=== PATIENT | female | born 1950 | race Caucasian/White ===

== ENCOUNTER → 2016-12-10 | Outpatient (CLI) | payer MEDICARE, MEDICAID ==
[~2016-12-10] MED LIST: AMLO5TAB2 PO; AMLO5TAB4 PO; BECL8.7A5 INH; CEFD300C37 PO; CLOB15CR19 TP; CYCL-259 PO; GABA100C8 PO; HYDR25TA6 PO; LACT1CAP24 PO; LEVO50TA5 PO; LISI-170 PO; LOSA100T6 PO; METF500T4 PO; METR500T PO; OMEP20CA14 PO; OXYC-302 PO; PROM25SU35 PR; PROM25TA10 PO; RANI150C PO; ROPI0.5T2 PO; SIMV20TA PO; TIZA4CAP PO; WARF5TAB7 PO
== END | disposition home or self-care (01) ==
LOC: RAD 12:41
PROVIDERS: ATTEND Family Medicine
DX: Z02.9 Encounter for administrative examinations, unspecified (principal)

== ENCOUNTER → 2016-12-14 | Outpatient (CLI) | payer MEDICARE, MEDICAID ==
[2016-12-14 14:39] LABS: ASPARTATE AMINO TRANSFERASE 6 U/L (15-37); BLOOD UREA NITROGEN 35 mg/dL (7-18)
== END | disposition home or self-care (01) ==
LOC: STAR 13:24
PROVIDERS: ATTEND Specialist
DX: Z01.818 Encounter for other preprocedural examination (principal); M40.294 Other kyphosis, thoracic region; M47.894 Other spondylosis, thoracic region; R19.07 Generalized intra-abdominal and pelvic swelling, mass and lump; R79.1 Abnormal coagulation profile; Z90.722 Acquired absence of ovaries, bilateral
CPT/HCPCS: 36415; 71020; 80053; 85025; 85610; 85730

== ENCOUNTER → 2016-12-20 | Outpatient (CLI) | payer MEDICARE, MEDICAID | END | disposition home or self-care (01) | LOC: CFH 15:04 | PROVIDERS: ATTEND Registered Nurse | DX: I67.82 Cerebral ischemia (principal); G31.9 Degenerative disease of nervous system, unspecified; R90.82 White matter disease, unspecified; Z98.890 Other specified postprocedural states; J32.0 Chronic maxillary sinusitis | CPT/HCPCS: 70551 ==

== ENCOUNTER 2016-12-24 09:57 | Inpatient (IN) | payer MEDICARE, MEDICAID ==
[2016-12-14 13:54] VITALS: BP 130/83
[~2016-12-24] VITALS: Ht 149.9 cm; Wt 94.0 kg
[~2016-12-24 09:57] MED LIST changes: +GABA-826 PO; -GABA100C8 PO
[2016-12-24] MEDS ORDERED: LIDOCAINE 1%, 2ML ONE (10:34)
[2016-12-24] MEDS ORDERED: LISI-167 PO (10:43)
[2016-12-24] MEDS ORDERED: ALBU18HF INH (10:43)
[2016-12-24] MEDS: LACTATED RINGERS 1,000 ML IV SCH (11:16)
[2016-12-24] MEDS ORDERED: BUPIVACAINE/PF-EPI 0.25% 1:200K ONE (11:42)
[2016-12-24] MEDS ORDERED: HEPARIN 1,000 UNITS/ML, 10ML ONE (11:42)
[2016-12-24] MEDS ORDERED: MIDAZOLAM 1 MG/ML, 2ML ONE (12:08)
[2016-12-24] MEDS ORDERED: FENTANYL PF 250 MCG/5ML ONE (12:08)
[2016-12-24] MEDS ORDERED: GLYCOPYRROLATE 0.2MG/1ML ONE (15:20)
[2016-12-24] MEDS ORDERED: PROPOFOL 10 MG/ML, 20ML ONE (15:20)
[2016-12-24] MEDS ORDERED: ROCURONIUM 10 MG/ML ONE (15:20)
[2016-12-24] MEDS ORDERED: SUCCINYLCHOLINE 20 MG/ML, 10ML ONE (15:20)
[2016-12-24] MEDS ORDERED: NEOSTIGMINE 1 MG/ML, 10ML ONE (15:20)
[2016-12-24] MEDS ORDERED: CEFAZOLIN 1,000 MG ONE (15:20)
[2016-12-24] MEDS ORDERED: HYDROmorphone 1 MG/ML, 1ML IV PRN (19:30)
[2016-12-24] MEDS ORDERED: ALBUTEROL SULFATE 2.5 MG/3 ML NPPB PRN (19:30)
[2016-12-24] MEDS ORDERED: LABETALOL 5MG/ML, 20ML IV PRN (19:30)
[2016-12-24] MEDS ORDERED: METOCLOPRAMIDE 5 MG/ML, 2ML IV PRN (19:30)
[2016-12-24] MEDS ORDERED: EPHEDRINE 50 MG/ML, 1ML IVPush PRN (19:30)
[2016-12-24] MEDS ORDERED: ONDANSETRON 2MG/ML, 2ML IVPush PRN (19:30)
[2016-12-24] MEDS ORDERED: MEPERIDINE/PF 25MG/0.5ML IVPush PRN (19:30)
[2016-12-24] MEDS ORDERED: ALBUTEROL/IPRATROPIUM 2.5MG/0.5MG, 3 ML NPPB PRN (19:30)
[2016-12-24] MEDS ORDERED: PROMETHAZINE 25 MG/ML, 1ML IV PRN (19:30)
[2016-12-24] MEDS ORDERED: OXYcodone 5 MG/5 ML ORAL.SOL UDC PO PRN (19:30)
[2016-12-24] MEDS ORDERED: ACETAMINOPHEN 325 MG TABLET PO PRN (19:30)
[2016-12-24] MEDS ORDERED: hydrALAzine 20 MG/ML, 1ML IV PRN (19:30)
[2016-12-24] MEDS ORDERED: MIDAZOLAM 1 MG/ML, 2ML IV PRN (19:30)
[2016-12-24] MEDS ORDERED: FENTANYL PF 100 MCG/2ML ONE ×2 (19:32→20:16)
[2016-12-24] MEDS ORDERED: ACETAMINOPHEN 650 MG/20.3 ML UDC ONE (19:32)
[2016-12-24] MEDS ORDERED: OXYcodone 5 MG/5 ML ORAL.SOL UDC ONE (19:33)
[2016-12-24] MEDS: FENTANYL PF 100 MCG/2ML IV PRN ×3 (19:55→20:18)
[2016-12-25] MEDS ORDERED: OXYC-223 PO (01:22)
[2016-12-25] MEDS ORDERED: ONDA4TAB10 PO (01:22)
[2016-12-25 06:36] LABS: ASPARTATE AMINO TRANSFERASE 40 U/L (15-37); BLOOD UREA NITROGEN 16 mg/dL (7-18)
[2016-12-25] MEDS ORDERED: ONDANSETRON ODT 4 MG PO PRN (12:00)
[2016-12-25 15:55] VITALS: BP 107/66
[2016-12-25] MEDS: OXYcodone/APAP 7.5/325MG TABLET PO PRN ×2 (15:58→22:11)
[2016-12-25] MEDS: LACTATED RINGERS 1,000 ML IV SCH (15:58)
[2016-12-25 18:35] VITALS: BP 101/68
[2016-12-25] MEDS: AMLODIPINE 5 MG TABLET HOMEMEDPO SCH (21:00)
[2016-12-25] MEDS: TEMPLATE NON-FORMULARY MED. (QVAR 80 MCG) HOMEINH SCH (21:00)
[2016-12-25] MEDS: LISINOPRIL 10 MG TABLET HOMEMEDPO SCH (21:00)
[2016-12-25] MEDS: ZANTAC 150MG HOMEMEDPO SCH (21:00)
[2016-12-25] MEDS ORDERED: AMLODIPINE 5 MG TABLET HOMEMEDPO SCH (21:00)
[2016-12-25] MEDS: SIMVASTATIN 20 MG TABLET PO SCH (21:05)
[2016-12-26] MEDS ORDERED: ONDA4TAB7 PO (00:26)
[2016-12-26] MEDS ORDERED: OXYC-223 PO (00:26)
[2016-12-26 00:59] VITALS: BP 124/62
[2016-12-26] MEDS: OXYcodone/APAP 7.5/325MG TABLET PO PRN ×2 (04:43→21:03)
[2016-12-26] MEDS: LEVOTHYROXINE 50 MCG TABLET PO SCH (05:45)
[2016-12-26 06:33] VITALS: BP 110/68
[2016-12-26] MEDS: AMLODIPINE 5 MG TABLET HOMEMEDPO SCH ×2 (07:31→20:40)
[2016-12-26] MEDS: TEMPLATE NON-FORMULARY MED. (QVAR 80 MCG) HOMEINH SCH ×2 (07:31→20:36)
[2016-12-26] MEDS: ZANTAC 150MG HOMEMEDPO SCH ×2 (07:31→20:43)
[2016-12-26] MEDS: CALCIUM CARBONATE 500 MG TAB.CHEW PO PRN (10:53)
[2016-12-26] MEDS ORDERED: BISACODYL 10 MG SUPP PR PRN (14:00)
[2016-12-26 14:18] VITALS: BP 135/77
[2016-12-26 14:55] LABS: IS PT STATUS REG ER OR PRE ER? NO
[2016-12-26] MEDS ORDERED: ALBUTEROL SULFATE 2.5 MG/3 ML NPPB PRN (15:30)
[2016-12-26 18:37] LABS: PATH.CAST-FLAG NOT PRESENT; SPERM-FLAG NOT PRESENT; SRC-FLAG NOT PRESENT; XTAL-FLAG NOT PRESENT; YLC-FLAG NOT PRESENT
[2016-12-26 19:53] VITALS: BP 103/59
[2016-12-26 20:12] LABS: IS PT STATUS REG ER OR PRE ER? NO
[2016-12-26] MEDS: TEMPLATE NON-FORMULARY MED. (Ranitidine Hcl** 150 MG) HOMEMEDPO SCH (20:38)
[2016-12-26] MEDS: LISINOPRIL 10 MG TABLET HOMEMEDPO SCH (20:42)
[2016-12-26] MEDS: SIMVASTATIN 20 MG TABLET PO SCH (20:43)
[2016-12-26] MEDS ORDERED: TEMPLATE NON-FORMULARY MED. (Beclomethasone Dipropionate 80MCG (Qvar 80MCG) 1 PUFF(S)) INH SCH (21:00)
[2016-12-27] MEDS: OXYcodone/APAP 7.5/325MG TABLET PO PRN ×2 (03:07→18:02)
[2016-12-27 03:11] VITALS: BP 106/68
[2016-12-27] MEDS: LEVOTHYROXINE 50 MCG TABLET PO SCH (05:24)
[2016-12-27 06:10] LABS: ASPARTATE AMINO TRANSFERASE 46 U/L (15-37); BLOOD UREA NITROGEN 9 mg/dL (7-18)
[2016-12-27 06:41] VITALS: BP 101/70
[2016-12-27] MEDS: ZANTAC 150MG HOMEMEDPO SCH ×2 (07:30→21:00)
[2016-12-27] MEDS: AMLODIPINE 5 MG TABLET HOMEMEDPO SCH ×2 (07:30→21:00)
[2016-12-27] MEDS: TEMPLATE NON-FORMULARY MED. (QVAR 80 MCG) HOMEINH SCH ×2 (07:30→20:58)
[2016-12-27] MEDS: TEMPLATE NON-FORMULARY MED. (Ranitidine Hcl** 150 MG) HOMEMEDPO SCH (07:30)
[2016-12-27] MEDS ORDERED: FLUTICASONE FUROATE 200MCG/INH INH SCH (09:00)
[2016-12-27 13:59] VITALS: BP 112/70
[2016-12-27] MEDS: ENOXAPARIN 40 MG/0.4 ML SQ SCH (17:54)
[2016-12-27] MEDS: DOXYCYCLINE 100 MG in DEXTROSE 5% 250 ML IV SCH (17:54)
[2016-12-27 18:41] VITALS: BP 115/75
[2016-12-27] MEDS: SIMVASTATIN 20 MG TABLET PO SCH (20:58)
[2016-12-27] MEDS: LISINOPRIL 10 MG TABLET HOMEMEDPO SCH (21:00)
[2016-12-28 01:58] VITALS: BP 104/60
[2016-12-28] MEDS: DOXYCYCLINE 100 MG in DEXTROSE 5% 250 ML IV SCH ×2 (04:42→16:33)
[2016-12-28] MEDS: LEVOTHYROXINE 50 MCG TABLET PO SCH (04:42)
[2016-12-28 07:10] VITALS: BP 108/47
[2016-12-28] MEDS: OXYcodone/APAP 7.5/325MG TABLET PO PRN ×3 (07:35→21:33)
[2016-12-28] MEDS: ZANTAC 150MG HOMEMEDPO SCH ×2 (09:00→21:35)
[2016-12-28] MEDS: AMLODIPINE 5 MG TABLET HOMEMEDPO SCH ×3 (09:00→21:00)
[2016-12-28] MEDS: TEMPLATE NON-FORMULARY MED. (QVAR 80 MCG) HOMEINH SCH ×2 (09:00→21:32)
[2016-12-28 12:37] VITALS: BP 114/72
[2016-12-28] MEDS: DOCUSATE 100 MG CAPSULE PO PRN (15:04)
[2016-12-28] MEDS: ENOXAPARIN 40 MG/0.4 ML SQ SCH (16:33)
[2016-12-28] MEDS ORDERED: CEFTRIAXONE 1,000 MG in SODIUM CHLORIDE 0.9% 100 ML IV SCH (17:30)
[2016-12-28 20:39] VITALS: BP 105/70
[2016-12-28] MEDS: LISINOPRIL 10 MG TABLET HOMEMEDPO SCH ×2 (21:00→21:53)
[2016-12-28] MEDS: SIMVASTATIN 20 MG TABLET PO SCH (21:35)
[2016-12-29] MEDS: CALCIUM CARBONATE 500 MG TAB.CHEW PO PRN (00:27)
[2016-12-29 03:29] VITALS: BP 110/60
[2016-12-29 05:15] LABS: BLOOD UREA NITROGEN 14 mg/dL (7-18)
[2016-12-29] MEDS: DOCUSATE 100 MG CAPSULE PO PRN (06:28)
[2016-12-29] MEDS: LEVOTHYROXINE 50 MCG TABLET PO SCH (06:28)
[2016-12-29] MEDS: OXYcodone/APAP 7.5/325MG TABLET PO PRN (06:40)
[2016-12-29] MEDS: DOXYCYCLINE 100 MG in DEXTROSE 5% 250 ML IV SCH (06:40)
[2016-12-29 07:14] VITALS: BP 103/68
[2016-12-29] MEDS: TEMPLATE NON-FORMULARY MED. (QVAR 80 MCG) HOMEINH SCH (08:15)
[2016-12-29] MEDS: AMLODIPINE 5 MG TABLET HOMEMEDPO SCH ×2 (08:15→08:24)
[2016-12-29] MEDS: ZANTAC 150MG HOMEMEDPO SCH (08:16)
[2016-12-29 13:11] VITALS: BP 118/59
[2016-12-29 13:25] VITALS: BP 117/74
== END 2016-12-29 15:01 | disposition home or self-care (01) | DRG 853 ==
LOC: OUT 09:57 → 4NOR 23:23 → OUT 12-25 18:18 → 4NOR 12-25 18:19 → DCLOUNGE 12-29 14:29
PROVIDERS: ADMIT Specialist; ATTEND Specialist
PROC: 0UTC4ZZ Resection of Cervix, Percutaneous Endoscopic Approach (ICD-10-PCS; 2016-12-24)
PROC: 0UT24ZZ Resection of Bilateral Ovaries, Percutaneous Endoscopic Approach (ICD-10-PCS; 2016-12-24)
PROC: 0UT74ZZ Resection of Bilateral Fallopian Tubes, Percutaneous Endoscopic Approach (ICD-10-PCS; 2016-12-24)
PROC: 8E0W4CZ Robotic Assisted Procedure of Trunk Region, Percutaneous Endoscopic Approach (ICD-10-PCS; 2016-12-24)
PROC: 0DNS4ZZ (ICD-10-PCS; 2016-12-24)
PROC: 0UT94ZZ Resection of Uterus, Percutaneous Endoscopic Approach (ICD-10-PCS; principal; 2016-12-24 12:00)
DX: A41.9 Sepsis, unspecified organism (principal); J96.01 Acute respiratory failure with hypoxia; J18.9 Pneumonia, unspecified organism; I50.33 Acute on chronic diastolic (congestive) heart failure; J44.0 Chronic obstructive pulmonary disease with (acute) lower respiratory infection; N39.0 Urinary tract infection, site not specified; Z68.41 Body mass index [BMI] 40.0-44.9, adult; J44.1 Chronic obstructive pulmonary disease with (acute) exacerbation; I50.32 Chronic diastolic (congestive) heart failure; D25.9 Leiomyoma of uterus, unspecified; D26.0 Other benign neoplasm of cervix uteri; N95.0 Postmenopausal bleeding; D27.9 Benign neoplasm of unspecified ovary; E03.9 Hypothyroidism, unspecified; E78.5 Hyperlipidemia, unspecified; E11.9 Type 2 diabetes mellitus without complications; E66.01 Morbid (severe) obesity due to excess calories; F32.9 Major depressive disorder, single episode, unspecified; G89.29 Other chronic pain; J20.9 Acute bronchitis, unspecified; I11.0 Hypertensive heart disease with heart failure; K21.9 Gastro-esophageal reflux disease without esophagitis; M19.90 Unspecified osteoarthritis, unspecified site; M54.9 Dorsalgia, unspecified; M79.7 Fibromyalgia; M81.0 Age-related osteoporosis without current pathological fracture; Z66 Do not resuscitate; Z82.3 Family history of stroke; Z86.718 Personal history of other venous thrombosis and embolism; Z86.73 Personal history of transient ischemic attack (TIA), and cerebral infarction without residual deficits; Z99.81 Dependence on supplemental oxygen; Z87.891 Personal history of nicotine dependence; Z79.899 Other long term (current) drug therapy; Z88.5 Allergy status to narcotic agent; K66.0 Peritoneal adhesions (postprocedural) (postinfection)
CPT/HCPCS: 36415; 71010; 74000; 80048; 80053; 81001; 82962; 83735; 83880; 84100; 84145; 84484; 85025; 86850; 86900; 86923; 87077; 87086; 87186; 88307; 88331; 93005; 93970; J0690; J0696; J1644; J1650; J2250; J2704; J2710; J3010; J3490; J7060; Q0162; J0330; J7120